=== PATIENT | female | born 1930 | race Caucasian/White ===

== ENCOUNTER 2021-05-18 15:30 | Emergency (ER) | payer OTHER, MEDICARE ==
[~2021-05-18] VITALS: Ht 165.1 cm; Wt 86.3 kg
[2021-05-18] MEDS ORDERED: MONTELUKAST SOD10 MG PO (15:58)
[2021-05-18] MEDS ORDERED: ADVAIR 250-501 EACH INH (15:58)
[2021-05-18] MEDS ORDERED: FEROSUL325 MG PO (15:59)
[2021-05-18] MEDS ORDERED: VENTOLIN HFA18 GM INH (15:59)
[2021-05-18] MEDS ORDERED: PANTOPRAZOLE SO40 MG PO (16:00)
[2021-05-18] MEDS ORDERED: POTASSIUM CHLO10 ME1 PO (16:01)
[2021-05-18] MEDS ORDERED: SULFAMETHOXAZO1 EAC1 PO (16:01)
[2021-05-18] MEDS ORDERED: HYDROCHLOROTH12.5 MG PO (16:01)
== END 2021-05-18 19:37 | disposition home or self-care (01) ==
LOC: ED 15:30
DX: S50.01XA Contusion of right elbow, initial encounter (principal); S09.90XA Unspecified injury of head, initial encounter; I10 Essential (primary) hypertension; Z88.5 Allergy status to narcotic agent; Z79.899 Other long term (current) drug therapy; Z79.51 Long term (current) use of inhaled steroids; W18.30XA Fall on same level, unspecified, initial encounter; W22.8XXA Striking against or struck by other objects, initial encounter; Y93.01 Activity, walking, marching and hiking
CPT/HCPCS: 29105; 70450; 73080; 99284-25